=== PATIENT | female | born 1985 | race Caucasian/White ===

== ENCOUNTER → 2017-05-23 | Outpatient (CLI) | payer BC, OTHER ==
[~2017-05-23] MED LIST: ACHYD1T PO; DCS100C PO; IBP800T PO; PREN1TAB39 PO
--- NOTE | 2017-05-23 15:50 | Diagnostic Imaging Report ---
EXAMINATION: OB ultrasound. INDICATION: Elevated beta hCG. FINDINGS: There is a gestational sac seen in the uterus with what appears to be an embryo that does not have associated cardiac activity, suggestive of embryo demise. The crown/rump length is 6 weeks and 6 days of gestation. A yolk sac is seen. The ovaries are not seen, probably obscured by bowel gas. There is a minimal subchorionic hemorrhage seen. IMPRESSION: Intrauterine with a crown/rump length at 6 weeks and 3 days of gestation with no cardiac activity seen, suggestive of embryo demise. The results were called to Nelson, the nurse working with Dr. Sher, by the medical technologist microbiology who performed the exam. Dictated by: Dictated on workstation # [id number]
== END ==
LOC: RAD 14:24
PROVIDERS: ATTEND Obstetrics & Gynecology
DX: O36.80X0 Pregnancy with inconclusive fetal viability, not applicable or unspecified (principal); E34.9 Endocrine disorder, unspecified; Z3A.00 Weeks of gestation of pregnancy not specified
CPT/HCPCS: 76801; 76817

== ENCOUNTER 2018-05-23 09:10 | Outpatient (CLI) | payer BC ==
[~2018-05-23] VITALS: Ht 152.4 cm; Wt 92.6 kg
[2018-05-23] MEDS ORDERED: PREN-53 PO (09:25)
[2018-05-23 09:28] VITALS: BP 107/67
== END 2018-05-23 09:52 | disposition home or self-care (01) ==
LOC: PREOP 09:10
PROVIDERS: ATTEND Obstetrics & Gynecology
DX: Z01.818 Encounter for other preprocedural examination (principal)
CPT/HCPCS: 87081

== ENCOUNTER 2018-05-31 03:07 | Inpatient (IN) | payer BC ==
[2018-05-31] VITALS (7 sets, daily range): BP systolic 107–131; BP diastolic 53–67
[~2018-05-31] VITALS: Ht 152.4 cm; Wt 90.7 kg
[~2018-05-31 03:07] MED LIST changes: +PREN-53 PO
--- NOTE | 2018-05-31 10:25 | NUR ---
JUANIS ROBLES presented to unit via ambulation from home, accompanied by family, with c/o PREVIOUS section. JUANIS ROBLES weighed, gowned, voided, and to bed. EFHM and TOCO applied, VS taken. JUANIS ROBLES oriented to bed controls, call light, TV, heat, and A/C controls.
--- OUTSIDE RECORDS SUMMARY | 2018-05-31 10:38 | XMS REPORT | Continuity of Care Document ---
Author Author [facility] Address Unknown Phone Unavailable Care Team Providers Care Senior Audit Manager Name Role Phone Patient States, No PCP Unavailable Unavailable Insurance Providers Payer Name Policy Number Subscriber Name Relationship [facility] [id number] JUANISIFRAH ROBLES SELF / SAME PATIENT Advance Directives Directive Response Recorded Date/Time Advance Directives: No 07/15/16 2:00pm Problems Active Medical Problems Problem Onset Date Recorded Date Status Right foot sprain 07/15/16 07/15/16 Active Medications No known medications. Social History Query Response Start Date Stop Date Smoking status: Never smoker Hospital Discharge Instructions No hospital discharge instructions. Plan of Care Discharge Date 07/15/16 Disposition 01-HOME, SELF-CARE,ASST LIVING Condition at Discharge Stable Instructions/Education Provided Sprain (DC) Prescriptions See Medications Section Referrals [facility] [place] [facility] - Additional Instructions/Education River wrap for comfort Ice and elevate Ibuprofen or Tylenol as needed for pain Follow up with your doctor as needed Return to the ER for worsening symptoms or other concerns Some of your test results may not be complete prior to your leaving the Emergency Department. The Emergency Department is not authorized to give test results over the phone. Please contact the doctor's office listed on this form for your final results. Follow up with your primary care physician or return to the Emergency Department for worsening or worrisome symptoms. * Emergency Department phone number: [phone] MEDICAL RECORD If you need copies of your X-rays, call [phone]. If you need copies of your medical record, including lab results, a signed authorization for release of records will be required. A telephone call for release of Health Information is not allowed. BILLING Billing can sometimes be confusing and frustrating. To help avoid confusion in the future, please take a moment to acquaint yourself with the billing parties for services. SERVICE BILLING DEMOCRAT [facility] ED [facility] [phone] X-rays [facility] Patients will receive bills for services from the appropriate provider. If you have any questions about your [facility] bill, our staff will be happy to assist you. Please call [phone] and ask for the billing department. THANK YOU for choosing [facility] as your emergency care provider. Care Plan and Goals ~~Discharge Care Plan~~ Problem: Contusion, pain to affected area, fall. Goal: Decreased contusion and pain to affected area. Instructions: Apply ice to area for 15-20 minutes every 3-4 hours. Elevate extremity above the level of the heart, if applicable. Splint area with pillow or blanket to any chest/abdomen injuries. Use incentive spirometry as directed. Take at least 10 deep breaths per hour. Take medication(s) as directed. Follow up with regular physician or specialist as directed. Exercise as tolerated or directed by physician. Functional Status No functional status results. Allergies, Adverse Reactions, Alerts Allergen Type Severity Reaction Status Last Updated Sulfa (Sulfonamide Antibiotics) Allergy Unknown Active 07/15/16 Immunizations No Known History of Immunizations. Vital Signs Vital Reading Collection Date/Time Result Blood Pressure 07/15/16 3:33pm 137/71 Blood Pressure Source 07/15/16 3:33pm Sitting Patient Temperature 07/15/16 3:33pm 98.5 Temperature Source 07/15/16 3:33pm Oral Respiratory Rate 07/15/16 3:33pm 16 Pulse Rate 07/15/16 3:33pm 86 Pulse Location 07/15/16 3:33pm Pulse Oximetry Bedside Pulse Oximetry 07/15/16 2:00pm 98 Height 07/15/16 2:00pm 152.4 cm Height 07/15/16 2:00pm 5 ft 0 in Weight 07/15/16 2:00pm 90.0 kg Weight 07/15/16 2:00pm 198.0 lb Body Mass Index 07/15/16 2:00pm 38.8 Results No known relevant diagnostic tests, laboratory data and/or discharge summary. Procedures No Known History of Procedures. Encounters Encounter Location Arrival/Admit Date Discharge/Depart Date Attending Provider Departed Emergency [facility] 07/15/16 1:57pm 07/15/16 3 :33pm Adrian Hernandez Encounter Diagnosis Sprain of right foot
[2018-05-31] MEDS ORDERED: FAMOTIDINE 20MG/2ML IV (PEPCID) IV ONE (10:45)
[2018-05-31] MEDS ORDERED: CITRIC ACID/SOB CIT (BICITRA) 30 ML UDC PO ONE (10:45)
[2018-05-31] MEDS ORDERED: METOCLOPRAMIDE INJ 10 MG/2 ML (REGLAN) IV ONE (10:45)
[2018-05-31] MEDS ORDERED: CATHETER FLUSH 10 ML SYR IV PRN (10:45)
[2018-05-31] MEDS ORDERED: ceFAZolin INJECTION 1,000 MG in NS (IVPB) 50 ML IV ONE (10:45)
[2018-05-31] MEDS: LACTATED RINGERS 1,000 ML IV PRN ×2 (10:58→12:25)
[2018-05-31 11:14] LABS: BASOPHILS % (AUTO) 0 % (0-10); EOSINOPHILS % (AUTO) 1 % (0-10); HEMATOCRIT 33 % (35-52); HEMOGLOBIN 10.9 G/DL (11.5-16.0); LYMPHOCYTES # (AUTO) 1.9 X 10^3 (1.0-4.0); LYMPHOCYTES % (AUTO) 22 % (12-44); MEAN CORPUSCULAR HEMOGLOBIN 29 PG (25-34); MEAN CORPUSCULAR HGB CONC 33 G/DL (32-36); MEAN CORPUSCULAR VOLUME 86 FL (80-99); MEAN PLATELET VOLUME 11.5 FL (7.4-10.4); MONOCYTES # (AUTO) 0.5 X 10^3 (0.0-1.0); MONOCYTES % (AUTO) 6 % (0-12); NEUTROPHILS # (AUTO) 6.2 X 10^3 (1.8-7.8); NEUTROPHILS % (AUTO) 71 % (42-75); PLATELET COUNT 137 10^3/uL (130-400); RED BLOOD COUNT 3.82 10^6/uL (4.35-5.85); RED CELL DISTRIBUTION WIDTH 14.4 % (10.0-14.5); WHITE BLOOD COUNT 8.7 10^3/uL (4.3-11.0)
[2018-05-31] MEDS ORDERED: ceFAZolin 2 GM IV Premixed 50 ML ONE (11:14)
[2018-05-31 11:16] LABS: BILIRUBIN,URINE NEGATIVE (NEGATIVE); CLARITY,URINE CLEAR; COLOR,URINE YELLOW; GLUCOSE, URINE (UA) NEGATIVE (NEGATIVE); KETONES,URINE 2+ (NEGATIVE); LEUKOCYTE ESTERASE ,URINE 1+ (NEGATIVE); NITRITE,URINE NEGATIVE (NEGATIVE); PH,URINE 8 (5-9); PROTEIN,URINE NEGATIVE (NEGATIVE); UROBILINOGEN,URINE NORMAL (NORMAL)
[2018-05-31 11:34] LABS: BACTERIA,URINE LARGE /HPF; RBC,URINE RARE /HPF; WBC,URINE 0-2 /HPF
[2018-05-31] MEDS ORDERED: OXYTOCIN/NORMAL SALINE 1,000 ML IV ONE (12:07)
[2018-05-31] MEDS ORDERED: fentaNYL INJECTION 100 MCG/2 ML AMP ONE (12:13)
[2018-05-31] MEDS ORDERED: NS (IVPB) 50 ML ONE (12:27)
[2018-05-31] MEDS ORDERED: ceFAZolin 1,000 MG/10 ML (ANCEF) VIAL ONE (12:27)
--- NOTE | 2018-05-31 12:35 | Progress Note-Pre Operative ---
Pre-Operative Progress Note H&P Reviewed The H&P was reviewed, patient examined and no changes noted. Date Seen by Provider: May 31, 2018 Time Seen by Provider: 12:30 Date H&P Reviewed: May 31, 2018 Time H&P Reviewed: 12:15 Pre-Operative Diagnosis: previous section ALBERT CHILDERS DO May 31, 2018 12:35
[2018-05-31] MEDS ORDERED: PHENYLEPHRINE 100 MCG/ML 10 ML (ANESTHESIA) SYR ONE (13:05)
[2018-05-31] MEDS ORDERED: OXYTOCIN/NORMAL SALINE 500 ML IV SCH (13:37)
[2018-05-31] MEDS ORDERED: TETANUS,DIPTH,PERTUSS P/F (BOOSTRIX) 0.5 ML VIAL IM SCH (13:45)
[2018-05-31] MEDS ORDERED: MEASLES,MUMPS,RUBELLA 1 EA INJ SC SCH (13:45)
[2018-05-31] MEDS ORDERED: HYDROmorphone 2 MG/ML VIAL (DILAUDID) IV PRN (13:45)
--- NOTE | 2018-05-31 13:50 | Cesarean Section Operative ---
Procedure Procedure Note Pre-operative Diagnosis: Leonor matthews (32 /Para 07/1010 , Gestational Age 39 weeks with history of previous section Post-operative Diagnosis: same Procedure: Repeat low transverse section Physician: ALBERT CHILDERS Estimated blood loss: 500 mL Disposition: stable Findings: Viable female , Apgars9/9, weight 6#14oz, intact placenta, 3vc, normal appearing uterus, tubes, and ovaries. Indications:Leonor matthews (32 /Para 3/1 ,Gestational Age39 weeks with history of previous section presenting for repeat section Procedure Details: The patient was seen in pre-op and the procedure was discussed with the patient in full, including the risks, benefits, and alternatives. All questions were answered. The patient was taken to the operating room and a time out was performed, verifying patient and procedure. After spinal anesthesia was placed by our anesthesia colleagues, the patient was placed in the dorsal supine with leftward tilt for uterine displacement.~ Her abdomen was then prepped and draped in the typical sterile fashion. A Pfannenstiel skin incision was made using a scalpel and carried down through the underlying fascia. The fascia was incised in the midline and tented up using Viraj clamps. On both the inferior and superior fascia side the rectus muscle was dissected off bluntly and sharply using Sebastian scissors. The peritoneum was identified and entered bluntly in the midline. This was then stretched laterally using manual strength. After entering the abdominal cavity and confirming lack of intraperitoneal adhesions, an extra large Yannick retractor was placed and the lower uterine segment was visualized. A bladder flap was created with the use of Metzenbaum scissors.~ A scalpel was utilized to make a low transverse uterine incision. Amniotomy was performed with an Allis clamp with return of clear fluid. The 's head was grasped and brought to the level of the incision. Fundal pressure was applied and infant was delivered without difficulty. Mouth and nares were suctioned with bulb suction. After the umbilical cord was clamped and cut, the was handed off to the pediatric staff. A sample of cord blood was then obtained. The placenta was delivered intact via uterine massage. The uterus was cleared of all clots and debris. The uterine incision was closed using 0 Vicryl in a running locked fashion. A second imbricated layer was placed using 0 Vicryl in a running fashion as well. The bilateral tubes and ovaries appeared normal. The abdominal gutters were cleared of all clots and debris. A final check of the uterine incision showed it to be hemostatic. The peritoneum was closed using 3-0 Vicryl in a running fashion. The fascia was closed with 0 Vicryl in a running fashion. The subcutaneous space was hemostatic, and irrigated. The subcutaneous space was closed with 3-0 Plain in several single interrupted stitches. The skin was then closed using 4-0 Monocryl in a running subcuticular fashion. The skin edges were reapproximated together and were hemostatic. A pressure dressing was applied. All sponge, lap and needle counts were correct at the end of the procedure per nursing. Vitals - Labs Labs Laboratory Tests 05/31/18 10:30: Urine Color YELLOW, Urine Clarity CLEAR, Urine pH 8, Urine Specific [place] 1.010L, Urine Protein NEGATIVE, Urine Glucose (UA) NEGATIVE, Urine Ketones 2+H, Urine Nitrite NEGATIVE, Urine Bilirubin NEGATIVE, Urine Urobilinogen NORMAL, Urine Leukocyte Esterase 1+H, Urine RBC (Auto) NEGATIVE, Urine RBC RARE, Urine WBC 0-2, Urine Squamous Epithelial Cells 10-25H, Urine Crystals NONE, Urine Bacteria LARGEH, Urine Casts NONE, Urine Mucus NEGATIVE, Urine Culture Indicated NO 05/31/18 10:55: White Blood Count 8.7, Red Blood Count 3.82L, Hemoglobin 10.9L, Hematocrit 33L, Mean Corpuscular Volume 86, Mean Corpuscular Hemoglobin 29, Mean Corpuscular Hemoglobin Concent 33, Red Cell Distribution Width 14.4, Platelet Count 137, Mean Platelet Volume 11.5H, Neutrophils (%) (Auto) 71, Lymphocytes (%) (Auto) 22 , Monocytes (%) (Auto) 6, Eosinophils (%) (Auto) 1, Basophils (%) (Auto) 0, Neutrophils # (Auto) 6.2, Lymphocytes # (Auto) 1.9, Monocytes # (Auto) 0.5, Eosinophils # (Auto) 0.0, Basophils # (Auto) 0.0 ALBERT CHILDERS DO May 31, 2018 13:50
--- NOTE | 2018-05-31 15:00 | NUR ---
Pt to OB room 308 via bed accompanied by PACU staff. Report rec'd from Juana Boone RN. Calf SCD's on and activated. IV pitocin to pump. VS taken, assessment completed. FFU/2, light rubra lochia noted, no clots expressed. Pt oriented to room and call light, room service. Post packet given. Fresh ice water and toradol given. No other needs or concerns voiced at this time. Pt visiting with family.
[2018-05-31] MEDS: KETOROLAC 30 MG/ML VIAL IVP SCH ×2 (15:31→21:36)
--- NOTE | 2018-05-31 20:25 | NUR ---
Pericare performed. Pt assisted to sitting at side of bed. Pt ambulates self to bathroom without incident. +void, 300ml clear , yellow urine noted. Pericare demonstrated. Fresh gown applied. Pt assisted back to bed without incident. Fresh ice water provided.
[2018-05-31] MEDS: DOCUSATE SODIUM 100 MG (COLACE) CAP PO SCH (21:36)
[2018-06-01 00:10] VITALS: BP 99/61
--- NOTE | 2018-06-01 01:20 | NUR ---
Patient at this time. No signs of distress.
[2018-06-01] MEDS: KETOROLAC 30 MG/ML VIAL IVP SCH ×2 (02:38→08:32)
--- NOTE | 2018-06-01 02:38 | NUR ---
Patient requesitng to not have vs taken again till 06 when dressing has to be removed and for staff to not disrupt them until that time so that she and her can sleep. Patient states she will wake to feed infant as needed.
--- NOTE | 2018-06-01 06:25 | NUR ---
To patient room at this time for vs and for dressing removal, patient at this time. Will return for vs.
[2018-06-01 06:29] LABS: BASOPHILS % (AUTO) 0 % (0-10); EOSINOPHILS # (AUTO) 0.1 10^3/uL (0.0-0.3); EOSINOPHILS % (AUTO) 1 % (0-10); HEMATOCRIT 28 % (35-52); HEMOGLOBIN 9.5 G/DL (11.5-16.0); LYMPHOCYTES # (AUTO) 2.3 X 10^3 (1.0-4.0); LYMPHOCYTES % (AUTO) 19 % (12-44); MEAN CORPUSCULAR HEMOGLOBIN 29 PG (25-34); MEAN CORPUSCULAR HGB CONC 34 G/DL (32-36); MEAN CORPUSCULAR VOLUME 87 FL (80-99); MEAN PLATELET VOLUME 11.8 FL (7.4-10.4); MONOCYTES # (AUTO) 0.6 X 10^3 (0.0-1.0); MONOCYTES % (AUTO) 6 % (0-12); NEUTROPHILS # (AUTO) 8.6 X 10^3 (1.8-7.8); NEUTROPHILS % (AUTO) 74 % (42-75); PLATELET COUNT 124 10^3/uL (130-400); RED BLOOD COUNT 3.27 10^6/uL (4.35-5.85); WHITE BLOOD COUNT 11.6 10^3/uL (4.3-11.0)
[2018-06-01 06:50] VITALS: BP 104/53
[2018-06-01] MEDS: DOCUSATE SODIUM 100 MG (COLACE) CAP PO SCH ×2 (07:56→20:20)
[2018-06-01] MEDS: HYDROcodone/APAP 5 MG/325 MG (LORTAB) TAB PO PRN ×4 (07:56→20:20)
--- NOTE | 2018-06-01 08:30 | NUR ---
Assessment completed at bedside. VSS. No questions or concerns voiced by pt. at this time. Call light within reach. Will continue to monitor.
[2018-06-01 08:31] VITALS: BP 105/67
--- NOTE | 2018-06-01 09:45 | NUR ---
Dr. Sher here to discuss POC with pt.
--- NOTE | 2018-06-01 10:22 | Postpartum Progress Note ---
Post Op Post-operative Day #2 s/p RLTCS Subjective: Patient is without complaints. Ambulating, voiding after quezada removed. Tolerating a regular diet without nausea or vomiting. Normal lochia. Pain is well controlled with oral pain medications. Passing flatus. breast feeding. Objective: Laboratory Tests Test 05/31/18 10:30 05/31/18 10:55 06/01/18 06:05 Range/Units Urine Color YELLOW Urine Clarity CLEAR Urine pH 8 5-9 Urine Specific [place] 1.010 L 1.016-1.022 Urine Protein NEGATIVE NEGATIVE Urine Glucose (UA) NEGATIVE NEGATIVE Urine Ketones 2+ H NEGATIVE Urine Nitrite NEGATIVE NEGATIVE Urine Bilirubin NEGATIVE NEGATIVE Urine Urobilinogen NORMAL NORMAL MG/DL Urine Leukocyte Esterase 1+ H NEGATIVE Urine RBC (Auto) NEGATIVE NEGATIVE Urine RBC RARE /HPF Urine WBC 0-2 /HPF Urine Squamous Epithelial Cells 10-25 H /HPF Urine Crystals NONE /LPF Urine Bacteria LARGE H /HPF Urine Casts NONE /LPF Urine Mucus NEGATIVE /LPF Urine Culture Indicated NO White Blood Count 8.7 11.6 H 4.3-11.0 10^3/uL Red Blood Count 3.82 L 3.27 L 4.35-5.85 10^6/uL Hemoglobin 10.9 L 9.5 L 11.5-16.0 G/DL Hematocrit 33 L 28 L 35-52 % Mean Corpuscular Volume 86 87 80-99 FL Mean Corpuscular Hemoglobin 29 29 25-34 PG Mean Corpuscular Hemoglobin Concent 33 34 32-36 G/DL Red Cell Distribution Width 14.4 14.0 10.0-14.5 % Platelet Count 137 124 L 130-400 10^3/uL Mean Platelet Volume 11.5 H 11.8 H 7.4-10.4 FL Neutrophils (%) (Auto) 71 74 42-75 % Lymphocytes (%) (Auto) 22 19 12-44 % Monocytes (%) (Auto) 6 6 0-12 % Eosinophils (%) (Auto) 1 1 0-10 % Basophils (%) (Auto) 0 0 0-10 % Neutrophils # (Auto) 6.2 8.6 H 1.8-7.8 X 10^3 Lymphocytes # (Auto) 1.9 2.3 1.0-4.0 X 10^3 Monocytes # (Auto) 0.5 0.6 0.0-1.0 X 10^3 Eosinophils # (Auto) 0.0 0.1 0.0-0.3 10^3/uL Basophils # (Auto) 0.0 0.0 0.0-0.1 10^3/uL 06/01/18 06/01/18 06/01/18 00:10 06:50 08:31 Temp 98.6 98.3 98.4 Pulse 74 62 67 Resp 18 18 18 B/P (MAP) 99/61 (74) 104/53 (70) 105/67 (80) Pulse Ox 97 97 98 O2 Delivery Room Air Room Air Room Air 06/01/18 00:00 Intake Total 2000 ml Output Total 100 ml Balance 1900 ml Physical Exam: General - Alert and oriented, no apparent distress Abdomen - Soft, appropriately tender to palpation, non-distended, fundus firm at umbilicus Incision - clean, dry and intact; no erythema or induration, no drainage Extremities - no edema, negative Liudmila's bilaterally Assessment: 1. post-operative day # 2, status post RLTCS. Recovering well, hemodynamically stable Acute blood loss anemia Plan: Routine post-operative care. Encourage breast feeding. Encourage ambulation. VTE prophylaxis: SCDs. Ferrous sulfate supplementation. Plan for discharge Vitals - Labs Vital Signs - I&O Vital Signs Date Time Temp Pulse Resp B/P (MAP) Pulse Ox O2 Delivery O2 Flow Rate FiO2 06/01/18 08:31 98.4 67 18 105/67 (80) 98 Room Air 06/01/18 06:50 98.3 62 18 104/53 (70) 97 Room Air 06/01/18 00:10 98.6 74 18 99/61 (74) 97 Room Air 05/31/18 21:38 98.9 73 18 107/65 (79) 05/31/18 16:15 99.0 73 18 114/56 (75) 98 Room Air 05/31/18 15:00 98.6 65 18 109/53 (71) 98 Room Air 05/31/18 12:07 80 18 131/59 (83) 05/31/18 11:38 68 18 117/65 (82) 05/31/18 11:07 76 18 108/63 (78) 05/31/18 10:35 98.7 71 18 128/67 (87) I & O 06/01/18 07:00 Intake Total 2900 ml Output Total 900 ml Balance 2000 ml Labs Laboratory Tests 05/31/18 10:30: Urine Color YELLOW, Urine Clarity CLEAR, Urine pH 8, Urine Specific [place] 1.010L, Urine Protein NEGATIVE, Urine Glucose (UA) NEGATIVE, Urine Ketones 2+H, Urine Nitrite NEGATIVE, Urine Bilirubin NEGATIVE, Urine Urobilinogen NORMAL, Urine Leukocyte Esterase 1+H, Urine RBC (Auto) NEGATIVE, Urine RBC RARE, Urine WBC 0-2, Urine Squamous Epithelial Cells 10-25H, Urine Crystals NONE, Urine Bacteria LARGEH, Urine Casts NONE, Urine Mucus NEGATIVE, Urine Culture Indicated NO 05/31/18 10:55: White Blood Count 8.7, Red Blood Count 3.82L, Hemoglobin 10.9L, Hematocrit 33L, Mean Corpuscular Volume 86, Mean Corpuscular Hemoglobin 29, Mean Corpuscular Hemoglobin Concent 33, Red Cell Distribution Width 14.4, Platelet Count 137, Mean Platelet Volume 11.5H, Neutrophils (%) (Auto) 71, Lymphocytes (%) (Auto) 22 , Monocytes (%) (Auto) 6, Eosinophils (%) (Auto) 1, Basophils (%) (Auto) 0, Neutrophils # (Auto) 6.2, Lymphocytes # (Auto) 1.9, Monocytes # (Auto) 0.5, Eosinophils # (Auto) 0.0, Basophils # (Auto) 0.0 06/01/18 06:05: White Blood Count 11.6H, Red Blood Count 3.27L, Hemoglobin 9.5L, Hematocrit 28L , Mean Corpuscular Volume 87, Mean Corpuscular Hemoglobin 29, Mean Corpuscular Hemoglobin Concent 34, Red Cell Distribution Width 14.0, Platelet Count 124L, Mean Platelet Volume 11.8H, Neutrophils (%) (Auto) 74, Lymphocytes (%) (Auto) 19 , Monocytes (%) (Auto) 6, Eosinophils (%) (Auto) 1, Basophils (%) (Auto) 0, Neutrophils # (Auto) 8.6H, Lymphocytes # (Auto) 2.3, Monocytes # (Auto) 0.6, Eosinophils # (Auto) 0.1, Basophils # (Auto) 0.0 ALBERT CHILDERS DO Jun 01, 2018 10:22
[2018-06-01] MEDS ORDERED: IBUP-844 PO (10:34)
[2018-06-01] MEDS ORDERED: ACHD5005 PO (10:34)
--- NOTE | 2018-06-01 10:37 | Discharge Inst-Women's Service ---
Discharge Inst-Women's Serv Depart Medication/Instructions New, Converted or Re-Newed RX: RX on Chart Final Diagnosis previous section acute blood loss anemia Consults/Follow Up Additional Follow Up: Yes (1 week for incision check with Kristel Guzman and [address] best) Activity Activity: Activity as Tolerated Driving Instructions: No Driving for 1 Week NO SMOKING: NO SMOKING Nothing Inside Vagina: No Douching, No [place], No Tampons Diet Discharge Diet: No Restrictions Symptoms to Report to : Bleeding Excessive, Pain Increased, Fever Over 101 Degrees F, Vaginal Bleeding Increase, Cramps in Feet or Legs, Vaginal Discharge Foul For Any Problems or Questions: Contact Your Physician Skin/Wound Care Infection Signs and Symptoms: Increased Redness, Foul Odor of Wound, Increased Drainage, Skin Itchy or Has a Rash Operative Area Clean and Dry: Keep Incision Clean/Dry Stitches/[place]/Dermabond: Dermabond Bathing Instructions: ALBERT Grant DO Jun 01, 2018 10:37
[2018-06-01 12:13] VITALS: BP 99/66
--- NOTE | 2018-06-01 13:10 | NUR ---
Report rec'd from Radha Sewell RN
[2018-06-01] MEDS: IBUPROFEN 600 MG (MOTRIN) TAB PO SCH ×2 (15:00→20:20)
[2018-06-01 15:10] VITALS: BP 111/72
[2018-06-01 20:20] VITALS: BP 104/61
[2018-06-02 03:10] VITALS: BP 112/72
[2018-06-02] MEDS: IBUPROFEN 600 MG (MOTRIN) TAB PO SCH ×3 (03:10→14:45)
--- NOTE | 2018-06-02 03:10 | NUR ---
Patient states she is no longer using urine hat when voiding.
[2018-06-02 09:07] VITALS: BP 127/61
[2018-06-02] MEDS: DOCUSATE SODIUM 100 MG (COLACE) CAP PO SCH (09:09)
--- NOTE | 2018-06-02 10:42 | Postpartum Progress Note ---
Post Op Post-operative Day #2 s/p RLTCS Subjective: Patient is without complaints. Ambulating, voiding after quezada removed. Tolerating a regular diet without nausea or vomiting. Normal lochia. Pain is well controlled with oral pain medications. Passing flatus. [] feeding. [] Objective: 06/02/18 06/02/18 03:10 09:07 Temp 98.2 98.6 Pulse 64 72 Resp 18 18 B/P (MAP) 112/72 (85) 127/61 (83) Pulse Ox 96 96 O2 Delivery Room Air Room Air Physical Exam: General - Alert and oriented, no apparent distress Abdomen - Soft, appropriately tender to palpation, non-distended, fundus firm at umbilicus Incision - clean, dry and intact; no erythema or induration, no drainage Extremities - no edema, negative Liudmila's bilaterally Assessment: [] post-operative day # [], status post []. Recovering well, hemodynamically stable Acute blood loss anemia [] Plan: Routine post-operative care. Encourage breast feeding. Encourage ambulation. VTE prophylaxis: SCDs. Ferrous sulfate supplementation. Plan for discharge [] Vitals - Labs Vital Signs - I&O Vital Signs Date Time Temp Pulse Resp B/P (MAP) Pulse Ox O2 Delivery O2 Flow Rate FiO2 06/02/18 09:07 98.6 72 18 127/61 (83) 96 Room Air 06/02/18 03:10 98.2 64 18 112/72 (85) 96 Room Air 06/01/18 20:20 98.6 75 18 104/61 (75) 95 Room Air 06/01/18 15:10 99.0 78 16 111/72 (85) 99 Room Air 06/01/18 12:13 98.3 76 16 99/66 (77) 98 Room Air I & O 06/02/18 07:00 Intake Total 400 ml Balance 400 ml ALBERT CHILDERS DO Jun 02, 2018 10:42
[2018-06-02] MEDS ORDERED: FERR-84 PO (12:29)
--- NOTE | 2018-06-02 12:30 | NUR ---
Dr. Sher here to see pt. Discharge orders rec'd.
--- NOTE | 2018-06-02 14:50 | NUR ---
Discharge instructions explained to pt with copy provided to pt along with prescriptions. Pt notified of additional script available at preferred pharmacy. Notified of need to schedule follow up and when. Pt verbalizes understanding of teaching, signs to verify. Denies questions or concerns at this time. Extra peripads provided per pt request.
[2018-06-02] MEDS: HYDROcodone/APAP 5 MG/325 MG (LORTAB) TAB PO PRN (15:45)
--- NOTE | 2018-06-02 15:54 | NUR ---
Pt ambulates self off unit accompanied by RN, S.o. & , to private vehicle. All personal belongings with pt. No s/s of distress noted.
--- NOTE | 2018-06-02 20:00 | Anesthesia-Regional Post-Op ---
Regional Patient Condition Mental Status: Alert, Oriented x3 Circulation: Same as Pre-Op Headache: Absent Sensation: Full Recovery Motor Block: Absent Post Op Complications Complications None Follow Up Care/Instructions Patient Instructions None needed. Anesthesia/Patient Condition Late entry from 06/01/18 at 0830: Patient is doing well, no complaints, stable vital signs, no apparent adverse anesthesia problems. No complications reported per nursing. LORI SAAVEDRA CRNA Jun 02, 2018 20:00
== END 2018-06-02 15:54 | disposition home or self-care (01) | DRG 787 ==
LOC: LDRP 10:30
PROVIDERS: ADMIT Obstetrics & Gynecology; ATTEND Obstetrics & Gynecology
PROC: 10D00Z1 Extraction of Products of Conception, Low, Open Approach (ICD-10-PCS; principal; 2018-05-31 12:35)
DX: O34.211 Maternal care for low transverse scar from previous cesarean delivery (principal); O90.81 Anemia of the puerperium; D62 Acute posthemorrhagic anemia; O26.893 Other specified pregnancy related conditions, third trimester; Z67.11 Type A blood, Rh negative; Z3A.39 39 weeks gestation of pregnancy; Z37.0 Single live birth
CPT/HCPCS: 36415; 81000; 83033; 85025; 86850; 86900; 86901; 94664